=== PATIENT | male | born 1995 | race African-American/Black ===

== ENCOUNTER 2021-04-14 10:08 | Emergency (ER) | payer OTHER, SELFPAY ==
--- NOTE | ~2021-04-14 | XR_ITS ---
EXAMINATION: XR chest 2V DATE: 04/14/2021 11:12 INDICATION: Shortness of breath and cough TECHNIQUE: PA and lateral views of the chest were obtained. COMPARISON: Chest radiograph dated 09/26/2016 FINDINGS: The lungs remain clear with no focal airspace opacities, pulmonary edema, pleural effusion or pneumot horax. The cardiomediastinal silhouette is normal. Visualized bones and soft tissues are unremarkable . IMPRESSION: 1. No acute cardiopulmonary disease. Reviewed, dictated and finalized at location A.
[2021-04-14 10:33] VITALS: BP 131/84; PULSE 81; RESP 18; TEMP 36.3; O2SAT 99
--- NOTE | 2021-04-14 10:59 | ED.URI ---
HPI - URI/Sore Throat General Chief Complaint: Upper Respiratory Infection Stated Complaint: Chest Congestion,Shortness of breath Time Seen by Provider: 04/14/21 10:59 Source: patient Mode of arrival: ambulatory Limitations: no limitations History of Present Illness HPI Narrative: Perfecto Cornejo is a 26 yo male with no PMH who comes to [facility] with cough congestion and shortness of breath for the last 3 to 4 days. He has been working at home; states that he feels somewhat short of breath when he is at rest as well as when he walks around. Points to his mid chest is being more is congested, no pain -Children have had Covid and have recovered. had Covid pneumonia. Related Data Allergies Allergy/AdvReac Type Severity Reaction Status Date / Time No Known Allergies Allergy Unverified 06/20/15 15:48 Review of Systems Review of Systems: CONSTITUTIONAL: Denies fever, chills, sweats. States that shortness of breath at rest as well as when walking around EYES: Denies visual changes, redness, discharge. ENT: Mild rhinorrhea, congestion, sore throat, no otalgia. CARDIOVASCULAR: Denies chest pain, palpitations, edema. RESPIRATORY: Denies dyspnea, wheezing, cough GASTROINTESTINAL: Denies abdominal pain, nausea, vomiting, diarrhea. GENITOURINARY: Denies dysuria, hematuria, abnormal discharge SKIN: Denies rash or itching. NEUROLOGIC: Denies numbness, or focal weakness. PSYCHIATRIC: Denies anxiety or depression. PMFSH Past Medical History Medical History No acute medical problems Family History Family History Other Hypertension Social History Social History (Updated 04/14/21 @ 11:08 by Karina Vasquez CNP) Smoking status: Never smoker Alcohol intake: current Comments At time of signature, I agree with nursing past medical, surgical, social and family history. There is no relevant family history pertinent to the presenting complaint. Exam Narrative: GENERAL: This is a well-nourished, well-developed patient, in mild distress. HEAD: normocephalic, atraumatic. EYES: . Sclera clear/white. Vision is grossly intact. EARS: External ears normal, . Hearing grossly intact. NOSE: External nose normal with nasal discharge, nares without redness, pus rhinorrhea. THROAT: Mucous membranes moist, NECK: Neck supple, non-tender CARDIOVASCULAR: Regular rate and rhythm without murmurs, gallops, or rubs. RESPIRATORY: Coarse to auscultation. Breath sounds equal bilaterally. No wheezes, rales, or rhonchi. GASTROINTESTINAL: Abdomen soft, SKIN: warm, intact with no suspicious lesions or rash, good texture and turgor. NEURO: awake, alert, and oriented to person, place and time. There were no obvious focal neurologic abnormalities. Steady gait EXTREMITIES: Normal range of motion. BACK: Nontender without deformity Course Course Emergency Course: Patient here with complaints of congestion and cough with shortness of breath for the last 3 to 4 days; he has been vaccinated as well as his and kids who have had Covid and have recovered Covid test done -negative Chest [id number] is no acute cardiopulmonary disease, lungs remain clear with no focal airspace opacity, pulmonary edema, pleural effusion, or pneumothorax, normal cardiomediastinal silhouette Given some Tessalon Perles, albuterol, Flonase- follow up with the primary Vital Signs Vital signs: Vital Signs Temperature 97.4 F L 04/14/21 10:33 Pulse Rate 81 04/14/21 10:33 Respiratory Rate 18 04/14/21 10:33 Blood Pressure 131/84 04/14/21 10:33 Pulse Oximetry 99 04/14/21 10:33 Temperature 97.4 F L 04/14/21 10:33 Pulse Rate 81 04/14/21 10:33 Respiratory Rate 18 04/14/21 10:33 Blood Pressure 131/84 04/14/21 10:33 Pulse Oximetry 99 04/14/21 10:33 MDM - URI/Sore Throat Differential Diagnosis Differential diagnosis: Likely
== END 2021-04-14 11:54 | disposition home or self-care (01) ==
PROVIDERS: Emergency Provider Nurse Practitioner; PCP Family Medicine
DX: J06.9 Acute upper respiratory infection, unspecified (principal); Z20.822 Contact with and (suspected) exposure to COVID-19; J45.909 Unspecified asthma, uncomplicated; Z86.14 Personal history of Methicillin resistant Staphylococcus aureus infection
CPT/HCPCS: 71046; 87426; 99213; C9803; G0463

== ENCOUNTER 2021-11-27 10:00 | Emergency (ER) | payer OTHER, SELFPAY ==
--- NOTE | 2021-11-27 10:04 | ED.URI ---
HPI - URI/Sore Throat General Chief Complaint: Upper Respiratory Infection Stated Complaint: bilateral ear pain,headache Time Seen by Provider: 11/27/21 10:25 Source: patient and RN notes reviewed Mode of arrival: ambulatory Limitations: no limitations History of Present Illness HPI Narrative: 26-year-old male presents with concern for nasal congestion, ear pain with dizziness, posterior headache that started yesterday. He denies fever, bodies, chills, sweats, cough, shortness of breath, nausea, vomiting, diarrhea. Reports he took an [id number] medication an hour ago, he is not sure what it was. MD elicited complaint: nasal congestion and other (Ear pain) Related Data Allergies Allergy/AdvReac Type Severity Reaction Status Date / Time No Known Allergies Allergy Verified 11/27/21 10:16 Review of Systems Review of Systems: CONSTITUTIONAL: Denies malaise, chills, sweats, or fever. EYES: Denies visual changes, redness, or discharge. ENT: Reports rhinorrhea, congestion, otalgia. Denies sinus pain and sore throat. CARDIOVASCULAR: Denies chest pain, palpitations, or edema. RESPIRATORY: Denies cough. Denies dyspnea. GASTROINTESTINAL: Denies abdominal pain, nausea, vomiting, diarrhea SKIN: Denies rash or itching. MUSCULOSKELETAL: Denies myalgia. NEUROLOGIC: Reports headache and feeling of dizziness. All systems reviewed & are unremarkable except as noted in HPI and below PMFSH Past Medical History Medical History No acute medical problems Family History Family History Other Hypertension Social History Social History (Updated 04/14/21 @ 11:08 by Karina Vasquez CNP) Smoking status: Never smoker Alcohol intake: current Comments At time of signature, agree with nursing past medical, surgical, social and family history. There is no relevant family history pertinent to the presenting complaint Exam Narrative: GENERAL: Well-appearing, well-nourished, and in no acute distress. HEAD: Normocephalic EYES: PERRLA, conjunctivae clear ENT: Nares clear, turbinates edematous and erythematous, clear discharge. Mucous membranes moist. TM pearly zaldivar with dull light reflex bilaterally; no tragal tenderness. Oropharynx not erythematous without lesions. Tonsils not enlarged and without exudate, no drooling, no hoarseness, no trismus, uvula midline. NECK: Supple. No lymphadenopathy CHEST: Clear to auscultation, breath sounds equal. No wheezing, rhonchi, rales, or stridor. No respiratory distress, speaks in full sentences. HEART: Regular rate and rhythm. No murmur heard. SKIN: Warm, dry, no rash. NEURO: Alert and oriented x3. PSYCH: Normal mood and affect Course Course Emergency Course: Patient is aware of diagnosis, understands and agrees to treatment plan. Anticipatory guidance given. Patient agrees to follow-up as directed and is aware of reasons to seek care at the emergency department. Portions of this record may have been created with voice recognition software Level of Care: Express Care Visit Vital Signs Vital signs: Reviewed. MDM - URI/Sore Throat MDM Narrative Medical decision making narrative: Differential diagnosis considered: Morin virus, strep pharyngitis, allergic rhinitis, upper respiratory tract infection, sinusitis, rhinosinusitis, nasopharyngitis. viral pharyngitis, otitis media, otitis externa, pneumonia, bronchitis, viral cough syndrome, viral syndrome, and influenza. Exam findings show no acute concerns or changes; patient is non-toxic appearing and is in no distress. Patient is appropriate for outpatient treatment and follow-up. Lab Data Attestation: I reviewed the patient's lab results. Critical Care Time Critical Care Time Critical Care Time: No Discharge Plan Discharge Clinical Impression: Upper respiratory infection Qualifiers: URI type: unspecified viral URI Qualified Code(s):
[2021-11-27 10:11] VITALS: BP 125/70; PULSE 80; RESP 18; TEMP 36.9; O2SAT 100
== END 2021-11-27 10:33 | disposition home or self-care (01) ==
PROVIDERS: Emergency Provider Nurse Practitioner; PCP Family Medicine
DX: J06.9 Acute upper respiratory infection, unspecified (principal); J45.909 Unspecified asthma, uncomplicated
CPT/HCPCS: 99213; G0463

== ENCOUNTER 2022-10-14 16:48 | Emergency (ER) | payer OTHER, SELFPAY ==
[2022-10-14 17:00] VITALS: BP 117/76; PULSE 74; RESP 16; TEMP 36.8; O2SAT 100
--- NOTE | 2022-10-14 17:13 | ED.EAR ---
HPI - Ear Problem General Chief complaint: Ear Stated complaint: bilateral ear pain,sorethroat Time Seen by Provider: 10/14/22 17:05 Source: patient Mode of arrival: ambulatory Limitations: no limitations History of Present Illness HPI Narrative: Patient presents today with a 4 day history of sore throat, headache, bilateral ear pain. Denies fever, cough congestion, rhinorrhea. Currently rates his pain 8/10 has tried no [id number] treatment prior to arrival. Denies any known sick contacts. Related Data Home Medications Medication Instructions Recorded Confirmed buspirone 10 mg tablet 10 mg PO BID 10/14/22 10/14/22 Allergies Allergy/AdvReac Type Severity Reaction Status Date / Time No Known Allergies Allergy Verified 10/14/22 16:50 Review of Systems Review of Systems: CONSTITUTIONAL: Denies body aches, fever, chills, or sweats. EYES: Denies visual changes, redness, or discharge. ENT: Denies rhinorrhea, congestion. + sore throat, bilateral ear pain CARDIOVASCULAR: Denies chest pain, palpitations, or edema. RESPIRATORY: Denies cough or dyspnea. GASTROINTESTINAL: Denies abdominal pain, nausea, vomiting, or diarrhea. GENITOURINARY: Denies dysuria or hematuria. SKIN: Denies rash, itching, or wounds. MUSCULOSKELETAL: Denies back pain, joint pain, or myalgia. NEUROLOGIC: Denies numbness, tingling, or weakness.+ headache PSYCH: Denies depression or anxiety. PMFSH Past Medical History Medical History (Updated 10/14/22 @ 17:17 by Lady Ferguson, [facility], ) History of MRSA infection Family History Family History (Reviewed 10/14/22 @ 17:13 by Lady Ferguson, [facility], ) Other Hypertension Social History Social History (Reviewed 10/14/22 @ 17:13 by Lady Ferguson, [facility], ) Smoking status: Never smoker Alcohol intake: current Comments At time of signature, I have reviewed and agree with nursing past medical, surgical, social and family history unless otherwise noted. Please see nursing chart for further information. There is no relevant family history pertinent to the presenting complaint Exam Narrative: GENERAL: Well-appearing, well-nourished, and in no acute distress. HEAD: Normocephalic, atraumatic. EYES: EOMI. No redness or drainage. Conjunctivae normal. ENT: Mucous membranes pink and moist. Nares clear. No rhinorrhea. Bilateral middle ear effusions without evidence of bacterial infection. Throat mildly erythematous without edema or exudate. Small amount of postnasal drainage.. Uvula midline. NECK: Normal AROM. Supple. No lymphadenopathy. CHEST: No respiratory distress. Clear to auscultation. HEART: Regular rate and rhythm. No murmur appreciated. Normal peripheral pulses. EXTREMITIES: Normal range of motion. No edema. SKIN: Warm, dry, no rash. Capillary refill normal. Normal skin turgor. NEURO: No focal deficits. Alert and oriented x3. Gait steady. PSYCH: Normal affect. No signs of depression or anxiety. Course Course Level of Care: Express Care Visit Vital Signs Vital signs: Vital Signs Temperature 98.3 F 10/14/22 17:00 Pulse Rate 74 10/14/22 17:00 Respiratory Rate 16 10/14/22 17:00 Blood Pressure 117/76 10/14/22 17:00 Pulse Oximetry 100 10/14/22 17:00 Oxygen Delivery Room Air 10/14/22 17:00 Temperature 98.3 F 10/14/22 17:00 Pulse Rate 74 10/14/22 17:00 Respiratory Rate 16 10/14/22 17:00 Blood Pressure 117/76 10/14/22 17:00 Pulse Oximetry 100 10/14/22 17:00 Oxygen Delivery Room Air 10/14/22 17:00 Reviewed Medical Decision Making MDM Narrative Medical decision making narrative: Symptoms consistent with respiratory infection with bilateral serous effusions. No prescription medications indicated at this time. Anticipatory guidance given Differential Diagnosis Differential Diagnosis: URI, otitis media, pharyngitis, strep throat, seasonal allergies Vital Signs Vital Signs: Vital Signs Temperature 98.3 F
== END 2022-10-14 17:41 | disposition home or self-care (01) ==
PROVIDERS: Emergency Provider Nurse Practitioner; PCP Family Medicine
DX: J06.9 Acute upper respiratory infection, unspecified (principal); H65.03 Acute serous otitis media, bilateral; Z86.14 Personal history of Methicillin resistant Staphylococcus aureus infection
CPT/HCPCS: 99211; G0463

== ENCOUNTER 2023-03-25 10:21 | Emergency (ER) | payer OTHER, SELFPAY ==
--- NOTE | ~2023-03-25 | XR_ITS ---
EXAMINATION: XR chest 1V portable DATE: 03/25/2023 11:06 INDICATION: COVID positive. Dyspnea and difficulty breathing TECHNIQUE: Portable AP view of the chest was obtained. COMPARISON: Chest radiograph dated 04/14/2021 FINDINGS: The lungs remain clear with no focal airspace opacities, pulmonary edema, pleural effusion or pneumot horax. The cardiomediastinal silhouette is normal. Mild thoracolumbar dextrocurvature. IMPRESSION: 1. No acute cardiopulmonary disease. Reviewed, dictated and finalized at location A.
[2023-03-25 10:26] VITALS: BP 120/87; PULSE 87; RESP 16; TEMP 36.3; O2SAT 100
--- NOTE | 2023-03-25 10:44 | ED.GENADULT ---
[facility] - General Adult General Chief complaint: Upper Respiratory Infection Stated complaint: tested positive , covid+ Time Seen by Provider: 03/25/23 10:29 Source: patient Mode of arrival: ambulatory Limitations: no limitations History of Present Illness [facility] narrative: This is a 28-year-old male who presents to the ED with chief complaint of URI symptoms for the past couple of weeks. He states today he is here because he is having increasing shortness of breath and had a positive home COVID test a couple of days ago. He states he has been researching what the shortness of breath could be and feels that it may be making him anxious. He states it is hard to get a deep breath. He states he is having minimal cough at this point with only occasional productive cough. Denies fevers, chills, nausea, vomiting, chest pain, abdominal pain, rhinorrhea or congestion. Related Data Home Medications Medication Instructions Recorded Confirmed No Home Medications 03/25/23 03/25/23 Allergies Allergy/AdvReac Type Severity Reaction Status Date / Time No Known Allergies Allergy Verified 03/25/23 11:22 Review of Systems Review of Systems: All systems as dictated in [facility] Past Medical History Medical History (Updated 03/25/23 @ 11:05 by Zander Kinney PA-C) History of MRSA infection Family History Family History Other Hypertension Social History Social History Smoking status: Never smoker Alcohol intake: current Exam Narrative: GENERAL: Well-appearing, well-nourished, and in no acute distress. HEAD: Normocephalic, atraumatic. EYES: PERRLA and EOMI. ENT: Nares clear, no rhinorrhea or epistaxis. Mucous membranes moist. Oropharynx without tonsillar hypertrophy exudate or other lesions. NECK: Supple. No adenopathy or masses. CHEST: No respiratory distress. Clear to auscultation. No wheezes rales or rhonchi. Talking in full sentences. Sats 100% on room air. HEART: Regular rate and rhythm. No murmur heard. Normal peripheral pulses. ABDOMEN: Soft, nontender, nondistended, normal active bowel sounds. MSK: Normal range of motion. No edema. SKIN: Warm, dry, no rash. NEURO: Alert and oriented x3. No focal deficits. PSYCH: Normal mood and affect. Course Vital Signs Vital signs: Vital Signs Temperature 97.3 F L 03/25/23 10:26 Pulse Rate 87 03/25/23 10:26 Respiratory Rate 16 03/25/23 10:26 Blood Pressure 120/87 03/25/23 10:26 Pulse Oximetry 100 03/25/23 10:26 Oxygen Delivery Room Air 03/25/23 10:26 Temperature 97.3 F L 03/25/23 10:26 Pulse Rate 87 03/25/23 10:26 Respiratory Rate 16 03/25/23 11:39 Blood Pressure 120/87 03/25/23 10:26 Pulse Oximetry 100 03/25/23 10:26 Oxygen Delivery Room Air 03/25/23 10:26 Medical Decision Making MDM Narrative Medical decision making narrative: This is a 28-year-old male who presents to the ED with chief complaint of shortness of breath and positive COVID test at home. Vitals are normal. Exam is benign. Chest x-ray shows no acute findings. His symptoms are consistent with viral syndrome due to COVID. Again sats 100% on room air. We discussed that it may take another week or so to fully resolve from this. He already has an albuterol inhaler to take for bronchodilatory purposes. Pt will be discharged in stable condition. Return precautions given and supportive measures discussed. Pt is understanding and agreeable with plan for discharge and follow-up with PCP. Vital Signs Vital Signs: Vital Signs Temperature 97.3 F L 03/25/23 10:26 Pulse Rate 87 03/25/23 10:26 Respiratory Rate 16 03/25/23 10:26 Blood Pressure 120/87 03/25/23 10:26 Pulse Oximetry 100 03/25/23 10:26 Oxygen Delivery Room Air 03/25/23 10:26 Temperature 97.3 F L 03/25/23 10:26 Pulse Rate 87 03/25/23
[2023-03-25 11:39] VITALS: RESP 16
== END 2023-03-25 11:35 | disposition home or self-care (01) ==
PROVIDERS: Emergency Provider Physician Assistant; PCP Family Medicine
DX: J06.9 Acute upper respiratory infection, unspecified (principal); Z86.14 Personal history of Methicillin resistant Staphylococcus aureus infection
CPT/HCPCS: 71045; 99283